=== PATIENT | female | born 1965 | race Caucasian/White ===

== ENCOUNTER 2017-11-05 00:50 | Emergency (ER) | payer MEDICAID ==
[2017-11-05] MEDS ORDERED: KETOROLAC TROMETHAMINE 60 MG/2 ML SDV IM ONE (01:56)
[2017-11-05] MEDS ORDERED: LIDOCAINE 2% INJ-PF (20 MG/ML) 10 ML AMPUL NEB ONE (01:56)
[2017-11-05] MEDS ORDERED: BENZONATATE 100 MG CAPSULE PO ONE (01:57)
--- NOTE | 2017-11-05 02:17 | RADIOLOGY REPORT (SQ) ---
EXAM DESCRIPTION: XR CHEST 2 VIEWS COMPLETED DATE/TME: 11/05/2017 00:00 CLINICAL HISTORY: 52 years Female, Chest pain, congestion, cough COMPARISON: None. FINDINGS: Adequate lung volume, clear parenchyma, normal cardiac silhouette, and intact bony thorax. IMPRESSION: No acute cardiopulmonary findings.
[2017-11-05 02:32] LABS: ANION GAP 10 (5-19); BLOOD UREA NITROGEN 12 mg/dL (7-20); CALCIUM 9.1 mg/dL (8.4-10.2); CARBON DIOXIDE 28 mmol/L (22-30); CHLORIDE 106 mmol/L (98-107); GLUCOSE 97 mg/dL (75-110); POTASSIUM 3.8 mmol/L (3.6-5.0); SODIUM 143.7 mmol/L (137-145)
--- NOTE | 2017-11-05 02:46 | ER Document Report ---
ED General - General Chief Complaint: Chest Pain Stated Complaint: CHEST PAIN Time Seen by Provider: 11/05/17 01:27 Notes: Patient is a 52-year-old female without chronic medical problems, current everyday smoker who presents with approximately 2 weeks of progressively worsening left lower rib pain. She describes as a stabbing, moderate to severe pain worsened by taking a deep breath and moving. She has not tried anything to improve the pain. The patient reports that for the past 4 weeks she has had a persistent cough although this cough has been improving in the past several days. She denies a history of similar symptoms in the past. She denies any trauma to the area. She has not seen her general doctor regarding today's concerns. She denies any unilateral leg swelling, use of estrogen, hemoptysis, prior diagnosis of malignancy, or any prior history of DVT or pulmonary embolus. TRAVEL OUTSIDE OF THE [place] IN LAST 30 DAYS: No - Related Data Allergies/Adverse Reactions: No Known Allergies Allergy (Unverified 11/05/17 00:56) Past Medical History - General Information source: Patient - Social History Smoking Status: Current Every Day Smoker Cigarette use (# per day): Yes - Half pack per day Smoking Education Provided: Yes - Smoking cessation counseling was provided for 4 minutes at the bedside Frequency of alcohol use: Occasional Drug Abuse: None Lives with: Alone Family History: Reviewed & Not Pertinent Patient has suicidal ideation: No Patient has homicidal ideation: No Renal/ Medical History: Denies: Hx Peritoneal Dialysis Review of Systems - Review of Systems Notes: Constitutional: Negative for fever. HENT: Negative for sore throat. Eyes: Negative for visual changes. Cardiovascular: Negative for chest pain. Respiratory: Negative for shortness of breath. Positive pleuritic pain Gastrointestinal: Negative for abdominal pain, vomiting or diarrhea. Genitourinary: Negative for dysuria. Musculoskeletal: Positive for left lower rib pain Skin: Negative for rash. Neurological: Negative for headaches, weakness or numbness. 10 point ROS negative except as marked above and in HPI. Physical Exam - Vital signs Vitals: Temp Pulse Resp BP Pulse Ox 97.7 F 54 L 18 120/70 100 11/05/17 01:11 11/05/17 01:11 11/05/17 01:11 11/05/17 01:11 11/05/17 01:11 Interpretation: Bradycardic Notes: PHYSICAL EXAMINATION: GENERAL: Well-appearing, well-nourished and in no acute distress. HEAD: Atraumatic, normocephalic. EYES: Pupils equal round and reactive to light, extraocular movements intact, sclera anicteric, conjunctiva are normal. ENT: nares patent, oropharynx clear without exudates. Moist mucous membranes. NECK: Normal range of motion, supple without lymphadenopathy LUNGS: Breath sounds clear to auscultation bilaterally and equal. No wheezes rales or rhonchi. HEART: Regular rate and rhythm without murmurs Chest wall: Reproduction of pain on palpation of the left lower intercostal spaces. ABDOMEN: Soft, nontender, normoactive bowel sounds. No guarding, no rebound. No masses appreciated. EXTREMITIES: Normal range of motion, no pitting or edema. No cyanosis. NEUROLOGICAL: No focal neurological deficits. Moves all extremities spontaneously and on command. PSYCH: Normal mood, normal affect. SKIN: Warm, Dry, normal turgor, no rashes or lesions noted. Course - Re-evaluation Re-evalutation: 11/05/17 02:43 Patient presents with 2 weeks of progressively worsening pain between the rib spaces of her left lower ribs. She describes this as a stabbing pain to the area worsened by taking deep breaths. Her chest x-ray is normal without any evidence of rib fractures, infiltrate or pneumothorax. Very low clinical suspicion for acute pulmonary embolus given her bradycardia at time of arrival, lack of a complaint about shortness of breath, and no evidence of risk factors for this diagnosis. However, patient did complain of a strong component of pleuritic pain and therefore d-dimer was sent. This was noted to be negative. I do not believe the patient requires a CT of the chest at this time point given her low clinical probability as well as a negative d-dimer. Patient has had a persistent cough for the past 1 month I suspect that this persistent cough has resulted in costochondritis to the affected area. Patient has had improvement after receiving Toradol and topical lidocaine. At this time will discharge with return precautions and follow-up recommendations. Verbal discharge instructions given a the bedside and opportunity for questions given. Medication warnings reviewed. Patient is in agreement with this plan and has verbalized understanding of return precautions and the need for primary care follow-up in the next 24-72 hours. - Vital Signs Vital signs: Temp Pulse Resp BP Pulse Ox 97.7 F 54 L 18 120/70 100 11/05/17 01:11 11/05/17 01:11 11/05/17 01:11 11/05/17 01:11 11/05/17 01:11 - Laboratory Result Diagrams: 11/05/17 02:05 Laboratory results interpreted by me: 11/05/17 02:05 Creatinine 0.51 L - Diagnostic Test Radiology reviewed: Image reviewed, Reports reviewed Radiology results interpreted by me: 11/05/17 02:43 Chest x-ray: No acute infiltrate or pneumothorax - EKG Interpretation by Me Additional EKG results interpreted by me: 11/05/17 02:45 Sinus bradycardia. Rate 48. No ST elevations or depressions. QTC is 415. Discharge - Discharge Clinical Impression: Persistent cough, Pleuritic pain, Tobacco abuse Intercostal muscle strain Qualifiers: Encounter type: initial encounter Qualified Code(s): S29.011A - Strain of muscle and tendon of front wall of thorax, initial encounter Condition: Good Disposition: HOME, SELF-CARE Additional Instructions: Your chest wall pain is due to inflammation of the muscles in between your left lower ribs. This pain can last for up to 6 weeks. It is very important that you continue to take purposeful deep breaths. For your pain: Continue to take ibuprofen 600 mg every 6 hours or Tylenol 1000 mg every 6 hours. Apply local lidocaine to the area per bottle instructions. There is a product sold over-the -counter called "Aspercreme with lidocaine" that you can use for this purpose. Please follow-up with your primary care doctor in the next 2-3 days. Return to the emergency department immediately if you develop worsening shortness of breath, increased pain, begin coughing blood, pass out, or have any other symptoms that are worrisome to you. Your chest x-ray is normal. The blood test to look for a blood clot is also normal. Prescriptions: Benzonatate [Tessalon Perles 100 mg Capsule] 100 mg PO Q8HP PRN #40 capsule PRN Reason: Forms: Smoking Cessation Education
[2017-11-05 03:37] VITALS: BP 124/65
--- NOTE | 2017-11-05 08:10 | EKG REPORT ---
SEVERITY:- OTHERWISE NORMAL ECG - SINUS BRADYCARDIA : Confirmed by: Yonathan Anthony MD 05-Nov-2017 08:09:33
== END 2017-11-05 03:38 | disposition home or self-care (01) ==
LOC: ER 00:50
DX: S29.011A Strain of muscle and tendon of front wall of thorax, initial encounter (principal); R07.81 Pleurodynia; R07.9 Chest pain, unspecified; R05 Cough; X58.XXXA Exposure to other specified factors, initial encounter; F17.210 Nicotine dependence, cigarettes, uncomplicated
CPT/HCPCS: 93005; 99284; 96372; 36415; 80048; 85379; 71046; 93010; J1885; J3490

== ENCOUNTER → 2018-02-01 | Outpatient (CLI) | payer MEDICAID ==
--- NOTE | 2018-02-01 14:58 | RADIOLOGY REPORT (SQ) ---
EXAM DESCRIPTION: U/S NON-OB PELVIS W/O DOP COMPLETED DATE/TIME: 02/01/2018 1:52 pm REASON FOR STUDY: PELVIC PAIN IN FEMALE (R10.2) R10.2 PELVIC AND PERINEAL PAIN COMPARISON: None. TECHNIQUE: Dynamic and static grayscale images acquired of the pelvis via transabdominal approach an d recorded on PACS. Additional selected color Doppler and spectral images recorded. LIMITATIONS: None. FINDINGS: UTERUS: Contour normal. No mass. ENDOMETRIAL STRIPE: No focal or generalized thickening. No masses. CERVIX: Not seen. RIGHT OVARY AND DOPPLER: Normal size. No worrisome masses. Normal arterial vascular flow without evid ence for torsion. LEFT OVARY AND DOPPLER: Normal size. No worrisome masses. Normal arterial vascular flow without evide nce for torsion. FREE FLUID: None noted. OTHER: No other significant finding. MEASUREMENTS: UTERUS: 7.8 x 4.2 x 3.7 cm. ENDOMETRIAL STRIPE: 5 mm. RIGHT OVARY: 2.3 x 1.4 x 1.5 cm. LEFT OVARY: 2.4 x 1.8 x 1.4 cm. IMPRESSION: NORMAL PELVIC ULTRASOUND BY TRANSABDOMINAL TECHNIQUE. TECHNICAL DOCUMENTATION: JOB ID: [id number] [employer]- All Rights Reserved Rev Reading location - IP/workstation name: [email or web address]
== END ==
LOC: RAD 12:40
PROVIDERS: ATTEND Obstetrics & Gynecology
DX: R10.2 Pelvic and perineal pain (principal)
CPT/HCPCS: 76856

== ENCOUNTER 2018-04-01 12:17 | Emergency (ER) | payer MEDICAID ==
[2018-04-01 12:46] VITALS: BP 127/68
== END 2018-04-01 14:48 | disposition left against medical advice (07) ==
LOC: ER 12:17
DX: Z53.21 Procedure and treatment not carried out due to patient leaving prior to being seen by health care provider (principal)